=== PATIENT | female | born 1980 | race Caucasian/White ===

== ENCOUNTER 2017-06-07 07:36 | Emergency (ER) | payer BC ==
[2017-06-07 08:04] VITALS: BP 124/86
--- NOTE | 2017-06-07 08:22 | UC ---
Throat Pain/Nasal Ming HPI - HPI Summary HPI Summary: Sore throat for 4 days. She has had her tonsils out. No fever or chills. She has had a mild cough for about a month. She is immunosuppressed. - History of Current Complaint Chief Complaint: UCRespiratory Stated Complaint: SORE THROAT Time Seen by Provider: 06/07/17 08:03 Hx Obtained From: Patient Hx Last Menstrual Period: 4yrs ?: No Onset/Duration: Gradual Onset, Lasting Days Severity: Moderate Pain Intensity: 8 Cough: Nonproductive Associated Signs & Symptoms: Positive: Dysphagia. Negative: Sinus Discomfort, Nasal Discharge, Fever, Vomiting, Rash - Epiglottits Risk Factors Epiglottis Risk Factors: Negative - Allergies/Home Medications Allergies/Adverse Reactions: Allergies Allergy/AdvReac Type Severity Reaction Status Date / Time NSAIDs AdvReac Mild See Comment Verified 06/07/17 08:04 cigarette smoke Allergy Swelling Uncoded 06/07/17 08:04 PMH/Surg Hx/FS Hx/Imm Hx Previously Healthy: No - kidney failure and transplant. - Surgical History Surgical History: Yes Surgery Procedure, Year, and Place: T&A. Tubal Ligation. Uterine Ablation. right kidney transplant 05/24/16 - Family History Known Family History: Positive: Other - no related throat family history. - Social History Lives: With Family Alcohol Use: None Substance Use Type: None Smoking Status (MU): Never Smoked Tobacco Review of Systems Constitutional: Negative ENT: Sore Throat Respiratory: Cough All Other Systems Reviewed And Are Negative: Yes Physical Exam Triage Information Reviewed: Yes Appearance: Well-Appearing, No Pain Distress, Obese Vital Signs: Initial Vital Signs Temp 98.5 F 06/07/17 07:51 Pulse 76 06/07/17 07:51 Resp 18 06/07/17 07:51 BP 124/86 06/07/17 07:51 Pulse Ox 100 06/07/17 07:51 Vital Signs Reviewed: Yes ENT: Positive: Normal ENT inspection, Pharynx normal, TMs normal, Uvula midline. Negative: Pharyngeal erythema, Nasal congestion, Nasal drainage, TM bulging, TM dull, TM red, Tonsillar swelling, Tonsillar exudate, Trismus, Muffled voice, Hoarse voice, Sinus tenderness Neck: Positive: Supple, Nontender, No Lymphadenopathy. Negative: Nuchal Rigidity Respiratory: Positive: Lungs clear, Normal breath sounds, No respiratory distress, No accessory muscle use. Negative: Respiratory distress, Decreased breath sounds, Accessory muscle use, Crackles, Rhonchi, Stridor, Wheezing Cardiovascular: Positive: No Murmur, Pulses Normal, Brisk Capillary Refill Abdomen Description: Positive: No Organomegaly, Soft. Negative: Distended, Guarding Musculoskeletal: Positive: Strength Intact, ROM Intact, No Edema Neurological: Positive: Alert, Muscle Tone Normal. Negative: Fatigued Psychological: Negative: Age Appropriate Behavior, Abnormal Response To Family, Decreased Age Appropriate Behavior Skin: Negative: rashes Throat Pain/Nasal Course/Dx - Course Course Of Treatment: sore throat without any evidence of bacterial infection. SHe will try supportive care for one more day and if not better, She will start amoxicillin. - Differential Dx/Diagnosis Provider Diagnoses: pharyngitis. Discharge - Discharge Plan Condition: Good Disposition: HOME Prescriptions: Amoxicillin PO (*) [Amoxicillin 500 MG CAP*] 500 mg PO TID #30 cap Patient Education Materials: Pharyngitis (ED) Referrals: Justin Steinberg DO [Primary Care Provider] -
== END 2017-06-07 08:21 | disposition home or self-care (01) ==
LOC: UCCORT 07:36
DX: J02.9 Acute pharyngitis, unspecified (principal); N19 Unspecified kidney failure; Z94.0 Kidney transplant status; E66.9 Obesity, unspecified; Z88.6 Allergy status to analgesic agent
CPT/HCPCS: 99212; G0463

== ENCOUNTER 2019-07-26 16:50 | Emergency (ER) | payer BC, OTHER ==
[2019-07-26 17:18] VITALS: BP 159/105
--- NOTE | 2019-07-26 17:49 | UC ---
Skin Complaint HPI - HPI Summary HPI Summary: per template checker: "woke this morning with rash on palms of hands and feet, upper thighs, took benadryl with no relief. Complaints of headache." -pt had renal trx in 2017 - she stopped taking all of her medication in Dec 2018 bc diarrhea. she has not f/u with PCP or trx or renal DrCristian valderrama had any labs done. she has rx for labs that has already . -rash started suddenly this morning when she woke up with severe itching on palms and feet. rash on inner thighs in progressing, not irching. also in low abdomen + chills. + frontal MARIE. no ST/no ear pain. -took benadryl 25mgs x 2 w/o any relief. thigh rasgh got worse. -denies swelling in lips, tongue throat. no SOB, no wheezing. - History of Current Complaint Chief Complaint: UCSkin Time Seen by Provider: 07/26/19 17:17 Stated Complaint: RASH Hx Last Menstrual Period: 01/02/19 Pain Intensity: 7 - Allergy/Home Medications Allergies/Adverse Reactions: Allergies Allergy/AdvReac Type Severity Reaction Status Date / Time NSAIDS (Non-Steroidal Allergy See Comment Verified 01/02/19 19:24 Anti-Inflamma Home Medications: Home Medications Atorvastatin* [Lipitor*] 10 mg PO DAILY 06/07/17 [History Confirmed 07/26/19] Febuxostat [Uloric] 40 mg PO DAILY 06/07/17 [History Confirmed 07/26/19] Ferrous Sulfate TAB* 325 mg PO DAILY 06/07/17 [History Confirmed 07/26/19] Magnesium Oxide TAB* [MagOx 400 TAB*] 400 mg PO DAILY 06/07/17 [History Confirmed 07/26/19] Mycophenolate Sodium [Mycophenolic Acid Dr] 360 mg PO TID 06/07/17 [History Confirmed 07/26/19] Phospha 250 Neutral Tablet 1 tab PO DAILY WITH MEAL 06/07/17 [History Confirmed 07/26/19] Sertraline* [Zoloft*] 150 mg PO DAILY 06/07/17 [History Confirmed 07/26/19] Tacrolimus [Envarsus Xr] 5 mg PO DAILY 06/07/17 [History Confirmed 07/26/19] paricalcitoL [Paricalcitol] 2 mcg PO BID 06/07/17 [History Confirmed 07/26/19] predniSONE 5 mg TAB [Deltasone TAB*] 5 mg PO DAILY 06/07/17 [History Confirmed 07/26/19] raNITIdine HCL [Ranitidine HCl] 150 mg PO BID 06/07/17 [History Confirmed ] amLODIPine TAB* [Norvasc 5 mg TAB*] 1 tab DAILY 01/02/19 [History Confirmed ] buPROPion SR TAB* [Wellbutrin SR TAB*] 200 mg PO DAILY 01/02/19 [History Confirmed 07/26/19] PMH/Surg Hx/FS Hx/Imm Hx Previously Healthy: Yes GI/ History: Other - kidney multicystic kidney disease s/p trx 2016 - Surgical History Surgical History: Yes Surgery Procedure, Year, and Place: T&A. Tubal Ligation. Uterine Ablation. right kidney transplant 05/24/16 - Family History Known Family History: Positive: Other - Dtr w/ meducllary cystic kidney disease dx'd age 15 - Social History Alcohol Use: None Substance Use Type: None Smoking Status (MU): Never Smoked Tobacco Review of Systems All Other Systems Reviewed And Are Negative: Yes Constitutional: Positive: Chills, Fatigue Skin: Positive: Rash Eyes: Positive: Negative ENT: Positive: Negative. Negative: Sore Throat, Ear Ache, Nasal Discharge, Sinus Congestion Respiratory: Positive: Negative. Negative: Shortness Of Breath, Cough Cardiovascular: Positive: Negative. Negative: Palpitations, Chest Pain Gastrointestinal: Positive: Negative. Negative: Abdominal Pain, Vomiting, Diarrhea, Nausea Genitourinary: Positive: Negative, Other - no oliguria. Negative: Dysuria, Hematuria Motor: Positive: Negative Neurovascular: Positive: Negative Musculoskeletal: Positive: Negative Neurological/Mental Status: Positive: Negative Psychological: Positive: Negative Is Patient Immunocompromised?: No Physical Exam Triage Information Reviewed: Yes Appearance: Well-Appearing, No Pain Distress, Well-Nourished - very pleasant, tearful Vital Signs: Initial Vital Signs Temp 100.8 F 07/26/19 17:13 Pulse 95 07/26/19 17:13 Resp 16 07/26/19 17:13 BP 159/105 07/26/19 17:13 Pulse Ox 100 07/26/19 17:13 Vital Signs Reviewed: Yes Eye Exam: Normal ENT Exam: Normal ENT: Positive: Pharynx normal, TMs normal. Negative: Nasal congestion, Nasal drainage, TM bulging, TM dull, TM red, Sinus tenderness Neck exam: Normal Neck: Positive: Supple, Nontender, No Lymphadenopathy Respiratory Exam: Normal Respiratory: Positive: Chest non-tender, Lungs clear, Normal breath sounds, No respiratory distress. Negative: Crackles, Rhonchi, Stridor, Wheezing Cardiovascular Exam: Normal Cardiovascular: Positive: RRR, No Murmur Abdominal Exam: Normal Abdomen Description: Positive: Nontender, Soft Musculoskeletal Exam: Normal Neurological Exam: Normal Psychological Exam: Normal Skin: Positive: Rashes - b/l inner thighs w/ raised plaques light pink w/ blanching eryrthema w/ mild extension to lower abdomen only. b/l palms and soles w/ erythema and itchy. no sores or lesions. Course/Dx - Course Course Of Treatment: h/o w/ kidney transplant 2016 who has stopped all of her meds in 12/2018 and has not ahd labs or f/u since that time. she woke up thi mmorning with rash on her inner thighs that is consistent w/ urticaria, and erythematous, pruritic rash on palms and feet. needs stat labs, need tor/o rneal toxixity. she understands the urgnecy to be seen at the [facility] ER today (her cylinder grinder is there.) has the capacity to be seen by nephrology fellow in ER to eval and slowly reintrodcue at least some of her meds based on labs. she is very scared but agreeable bc she understands the gravity of this. -she is quite tearful and mad at herslef for stopping her meds. she had terribel diarrhe causing fecal incontinence at times. bo tried several med changes w/o rleief so she got frustrated and stopped them all at hasnt f/u. she follows w/ [facility] at [facility] in [facility] (or trx) dept. her dtr got prgenat at 15 and is doing quite well at 17 caring for baby and doing well in school adn working. Sarah has neglected herself to help her dtr who was also dx'd w/ medullary kidney disease. she is very scared and hopes that she didnt mess up her second chance at life. she reassures me thats he will go to the ER even though she is quite scared. her came to pick her up and will be going to [facility]. - Differential Diagnoses - Skin Complaint Differential Diagnoses: Drug Rash, Systemic Illness, Other - CKD - Diagnoses Provider Diagnosis: Chronic kidney disease, Rash Discharge ED - Sign-Out/Discharge Documenting (check all that apply): Patient Departure All imaging exams completed and their final reports reviewed: No Studies - Discharge Plan Condition: Stable Disposition: HOME Patient Education Materials: Acute Rash (ED) Referrals: Justin Steinberg DO [Primary Care Provider] - Additional Instructions: We talked about the importance of being seen in the ER tonight for stat blood work. I am uncertain what the reason of the rash is but it could be related to kidney issues. Part of the importance of being seen is to help determine restarting some of your medication as well. Your elevated blood pressure may be related as well. - Billing Disposition and Condition Condition: STABLE Disposition: Home
== END 2019-07-26 18:15 | disposition home or self-care (01) ==
LOC: UCCORT 16:50
DX: N18.9 Chronic kidney disease, unspecified (principal); R21 Rash and other nonspecific skin eruption; Z88.6 Allergy status to analgesic agent
CPT/HCPCS: 99212; G0463